=== PATIENT | male | born 1960 ===

== ENCOUNTER 2017-08-08 14:05 | Emergency (ER) | payer OTHER ==
[2017-08-08 14:10] VITALS: BP 142/94; PULSE 98; RESP 16; TEMP 98; O2SAT 99
--- NOTE | 2017-08-08 14:37 | ED PDOC ---
HPI: CCC, URI, Sore Throat Time Seen by Provider: 08/08/17 14:11 Chief Complaint (Nursing): Cough, Cold, Congestion Chief Complaint (Provider): Cough History Per: Patient History/Exam Limitations: no limitations Onset/Duration Of Symptoms: Days (14 days ago) Current Symptoms Are (Timing): Still Present Additional History Per: Family Additional Complaint(s): 57 y/o male presents to ED complaining of cough, productive of sputum, onset of 14 days ago. Patient reports that over the past 2 weeks he's been having a cough with associated sore throat that worsens at night. He also notices that his left knee was hurting more after falling 3 weeks ago and is concerned that his increasing knee pain could possibly be related to his cough. Of note, patient also complains of bilateral eye redness. He dines any sick contact, recent travel, hemoptysis, chest pain, shortness of breath, fever, rash, or abdominal pain. Past Medical History Reviewed: Historical Data, Nursing Documentation, Vital Signs Vital Signs: Last Vital Signs Temp 98.0 F 08/08/17 14:07 Pulse 98 H 08/08/17 14:07 Resp 16 08/08/17 14:07 BP 142/94 H 08/08/17 14:07 Pulse Ox 99 08/08/17 16:28 - Surgical History Surgical History: No Surg Hx - Family History Family History: States: Unknown Family Hx - Living Arrangements Living Arrangements: With Family - Social History Current smoker - smoking cessation education provided: No Ex-Smoker (has not smoked in the last 12 months): No Alcohol: None Drugs: Denies - Home Medications Home Medications: Ambulatory Orders Medication Instructions Recorded Albuterol HFA [Ventolin HFA 90 2 puff IH [id number] PRN #60 puff 08/08/17 mcg/actuation (8 g)] Benzonatate [Tessalon Perle] 100 mg PO Q8 PRN #30 capsule 08/08/17 Fluticasone Propionate [Flonase] 2 spr NS DAILY PRN #1 bottle 08/08/17 - Allergies Allergies/Adverse Reactions: Allergies Allergy/AdvReac Type Severity Reaction Status Date / Time No Known Allergies Allergy Verified 08/08/17 14:11 Review of Systems ROS Statement: Except As Marked, All Systems Reviewed And Found Negative Constitutional: Negative for: Fever Cardiovascular: Negative for: Chest Pain Respiratory: Negative for: Shortness of Breath, Hemoptysis Gastrointestinal: Negative for: Abdominal Pain Skin: Negative for: Rash Physical Exam - Reviewed Nursing Documentation Reviewed: Yes Vital Signs Reviewed: Yes - Physical Exam Appears: Positive for: No Acute Distress Eye Exam: Positive for: Other (eye bilateral pterygiums; no eye discharge). Negative for: Conjunctival injection ENT: Positive for: Pharyngeal Erythema. Negative for: TM Is/Are (erythematous) , Tonsillar Exudate, Tonsillar Swelling Cardiovascular/Chest: Positive for: Regular Rate, Rhythm. Negative for: Murmur Respiratory: Positive for: Normal Breath Sounds. Negative for: Respiratory Distress Neurologic/Psych: Positive for: Alert, Oriented. Negative for: Motor/Sensory Deficits - ECG O2 Sat by Pulse Oximetry: 99 (RA) Pulse Ox Interpretation: Normal - Radiology X-Ray: Interpreted by Ak (CXR) X-Ray Interpretation: No Acute Disease - Progress ED Course And Treament: Rapid strep: negative Medical Decision Making Medical Decision Making: Time: --14:19 Impression: --57 y/o male with productive cough Plan: --Chest X-ray --Rapid Strep Reassess -- Scribe Attestation: Documented by Nile Eastman acting as a scribe for REYNA Alfonso. Disposition - Clinical Impression Clinical Impression: Acute bronchitis, Pterygium, Knee injury - Patient ED Disposition Is Patient to be Admitted: No - Disposition Referrals: formerly [facility] [Outside] Tapan Ibarra MD [Staff Provider] - Disposition: Routine/Home Disposition Time: 15:15 Condition: STABLE Additional Instructions: Follow up with Dr. Ibarra, eye doctor, for further evaluation. Follow up with [facility] for further evaluation. Return to ED immediately for any concerns or questions. Prescriptions: Albuterol HFA [Ventolin HFA 90 mcg/actuation (8 g)] 2 puff IH [id number] PRN #60 puff PRN Reason: Cough Benzonatate [Tessalon Perle] 100 mg PO Q8 PRN #30 capsule PRN Reason: Cough Fluticasone Propionate [Flonase] 2 spr NS DAILY PRN #1 bottle PRN Reason: Allergy Symptoms Instructions: Acute Bronchitis (ED), Pterygium (ED) Forms: [employer] (Vietnamese) Print Language: FINNISH
--- NOTE | 2017-08-08 15:25 | RAD ---
HISTORY: cough COMPARISON: None available. TECHNIQUE: Chest PA and lateral FINDINGS: Examination limited by habitus and hypoinflation. LUNGS: No focal consolidation. Please note that chest x-ray has limited sensitivity for the detection of pulmonary masses. PLEURA: No significant pleural effusion identified. No definite pneumothorax . CARDIOVASCULAR: Heart size appears within normal limits. OSSEOUS STRUCTURES: No acute osseous abnormality identified. VISUALIZED UPPER ABDOMEN: Unremarkable. OTHER FINDINGS: None. IMPRESSION: No focal consolidation, significant pleural effusion, or definite pneumothorax identified.
== END 2017-08-08 15:45 | disposition home or self-care (01) ==
LOC: H.ER 14:05
DX: J20.9 Acute bronchitis, unspecified (principal); H11.009 Unspecified pterygium of unspecified eye; Z87.891 Personal history of nicotine dependence